=== PATIENT | female | born 1965 | race Caucasian/White ===

== ENCOUNTER 2023-09-10 18:01 | Emergency (ER) | payer OTHER, SELFPAY ==
[2023-09-10 18:04] VITALS: BP 142/74
[2023-09-10 18:15] VITALS: BMI 34.7
--- NOTE | 2023-09-10 18:15 | ED.GENMED ---
History of Present Illness
General
Chief Complaint: Chest Pain
Source: patient
Exam Limitations: none
Time Seen by Provider: 09/10/23 18:03
Travel History
Have you had any contact with someone who has COVID-19?: No
Do you have any symptoms of coronavirus? Fever > 100 degrees, chills, cough, shortness of breath, sore throat, loss of taste or smell, muscle aches, or headache?: No
History of Present Illness
History of Present Illness:
This is a 58 year old female that comes in by ambulance with c/o chest pain. States that she seen by her Import Export Coordinator yesterday and she is scheduled for an ECHO and they did an ECG. Sates that she has been getting reflux and has had this chest
discomfort. States that she was started on Pantoprazole and Isosorbide yesterday. States that she was told to take them on an empty stomach so she took them around 4:30pm State that she was walking her dog when she started with chest pain. States
that this pain comes and goes and is not constant. States that at first it was a cramping pain and it only lasted about 1 min and it went away. States that again it was like a lightening strike pain and it goes away. States that she is SOB. Denies
any fever, chills, abd pain, nausea, vomiting, diarrhea, headache, dizziness, urinary burning.
Past History
Past History
ED Past Medical History: Asthma, Fibromyalgia, Hypercholesterolemia, Hypothyroidism, Psychiatric (Anxiety) and Other (Colitis, 2 abd hernia's)
ED Past Surgical History: (X 2)
Social History
Tobacco: Non-smoker
Alcohol: None
Personal:
Living: with family
Review of Systems
Review of Systems
All Other Systems: ROS reviewed and negative except as documented in HPI and ROS
Constitutional: Reports no symptoms; Denies fever or chills
EENT: Reports no symptoms
Respiratory: Reports trouble breathing; Denies cough
Cardiac: Reports chest pain
ABD/GI: Reports no symptoms; Denies abdominal pain, nausea, vomiting or diarrhea
: Reports no symptoms; Denies dysuria, frequency or urgency
Musculoskeletal: Reports no symptoms
Skin: Reports no symptoms
Neurological: Reports no symptoms; Denies dizzy or headache
Psychiatric: Reports no symptoms
Phy Exam
General Physical Exam
General Presentation: no apparent distress
General age: appears stated age
General Skin: warm and dry
General Habitus: normal
General Mental: alert
General Hydration: appears well hydrated
ENT Exam
ENT Exam: TM's normal, pharynx normal and neck supple
Eye Exam
Eye Exam: EOMI
Cardiovascular Exam
Cardiovascular Exam: regular rate/rhythm, no edema and normal peripheral pulses
Pulmonary Exam
Pulmonary Exam: lungs clear, no respiratory distress, no rales, chest non tender, no crackles, no rhonchi, no wheezing and no cough
Gastrointestinal Exam
Gastrointestinal Exam: normal bowel sounds, non tender, soft, no organomegaly, no pulsatile mass and non distended
Musculoskeletal Exam
Musculoskeletal Exam: full ROM and no edema
Skin Exam
Skin Exam: normal color, warm/dry, no rash and no petechia
Psychiatric Exam
Psychiatric Exam: normal mood/affect
Scores
Heart Score for Chest Pain Patients
STEMI patient?: No
History: Slightly or Non-Suspicious
ECG: Normal
Age: >45 - <65 years
Risk Factors: 1 or 2 Risk Factors
Troponin: </= Normal Limit
Heart Score for Chest Pain Patients: 2
Heart Score Risk: 2.5% MACE over next 6 weeks
Course
Orders/Labs/Results
Orders:
Orders
09/10/23 18:03
Electrocardiogram (*1) Urgent
Reason for Study: Chest Pain
EKG- Treatment ONCE
09/10/23 18:14
CR Chest - 2 Views Urgent
Comment:
Reason For Exam: chest pain
09/10/23 18:25
D-Dimer Urgent
09/10/23 19:01
Complete Blood Count/With Diff Urgent
Comprehensive Metabolic Panel Urgent
Troponin I Urgent
09/10/23 19:39
EKG- Treatment ONCE
09/10/23 22:00
Electrocardiogram (*1) Urgent
Reason for Study: Chest Pain
Other Reason for Exam: Repeat with Troponin
09/10/23 22:09
Troponin I Urgent
Abnormal Lab Results
09/10/23
19:01
RBC 3.92 L 10^6/uL
(4.20-5.40)
Hgb 11.0 L g/dL
(12.0-16.0)
Hct 32.2 L %
(37.0-47.0)
MPV 11.0 H fL
(7.4-10.4)
Glucose 104 H mg/dl
(70-99)
09/10/23 19:01
09/10/23 19:01
H/H slightly low. Glucose nonfasting. D-dimer 0.32, Troponin <0.012
Second Troponin <0.012
Vital Signs
Initial and Last Documented VS:
Initial Vital Signs
Temp Pulse Resp BP Pulse Ox
98.7 F 68 12 142/74 100
09/10/23 18:04 09/10/23 18:04 09/10/23 18:04 09/10/23 18:04 09/10/23 18:04
Last Documented Vital Signs
Temp Pulse Resp BP Pulse Ox
98.7 F 58 16 111/60 94
09/10/23 18:04 09/10/23 22:30 09/10/23 22:30 09/10/23 22:00 02/13/24 22:30
MDM/Problems Addressed
Differential Diagnosis Includes:
Angina, [place],
MDM/Problems Addressed:
This is a 58 year old female that comes in with c/o chest pain and that comes goes. States that she saw her Import Export Coordinator yesterday and she is being set up for a Cardiac cath. States that she gets chest pain that comes and goes.
Will get labs, Chest X-ray.
Back into see patient. Explained that her blood work is normal along with the Chest x-ray. Will get second troponin and if normal patient to follow up with her Import Export Coordinator tomorrow for further evaluation.
Back into see patient. Explained that her second Troponin was normal. Will have patient follow up with her Import Export Coordinator. Return with any concerns.
Repeat ECG; Rate 57, Sinus bradycardia. Normal axis. Normal QRS, negative for ischemia.
Chronic conditions affecting care:
NA
Acute Exacerbation and/or Progression of Chronic Illness:
NA
*Radiology
Radiology exam reviewed: preliminary read by ED provider (Chest- Negative for active disease)
*Pulse Oximetry
Patient hypoxic: no
*EKG
Interpreted by ED Provider?: Yes
Heart Rate: 64
Rate: normal
Rhythm: sinus
[place]: normal axis
Interval: normal interval
QRS Pattern: normal QRS
Ischemia: no ischemia
*Marketing Services Manager Interpretation
Rate: normal
Heart Rate: 60
*Critical Care Note
Total Time (30-74mins, 75-104mins- exclusive of procedures): Not Applicable
ED Attending Note
-
Portions of this chart may have been created with voice recognition software.� Occasional wrong word or��sound alike� substitutions may have occurred due to the inherent limitations of voice recognition software.
Discharge Plan
Departure
Patient Disposition: Home (Routine Discharge)
Date of Disposition: 09/10/23
Time of Disposition: 22:54
Patient with high blood pressure during this ER visit?: No
Condition: Good
Covid-19: Not Applicable
Discharge Problem:
Chest pain
Instructions: Chest Pain NON-DHP Import Export Coordinator Follow Up
Prescriptions:
No Action
benzonatate 100 mg capsule
100 mg PO Q4H PRN (Reason: cough) Qty: 14 0RF
doxycycline monohydrate 100 mg capsule
100 mg PO BID Qty: 20 0RF
Referrals:
Harshad Sosa CRNP [Family Provider] - Follow up in 2-3 days
Activity Restrictions/Additional Instructions:
As discussed, your both Troponin and ECG is normal. Your chest x-ray was normal and your D-dimer was negative. Please call your Import Export Coordinator tomorrow and let them know you were here at the hospital and were told to follow up. They may wish to move
up your Cardiac catheterization. IF YOU HAVE INCREASED OR CHANGING PAIN, OR YOU HAVE ANY OTHER CONCERNS PLEASE RETURN TO THE EMERGENCY ROOM.
Interventions
Interventions:
*Risk Screen - Suicide Last Done: 09/10/23 18:20
*General Assessment Last Done: 09/10/23 18:20
*Neglect/Abuse Screening Last Done: 09/10/23 18:20
ED- Fall Risk Assessment Last Done: 09/10/23 18:20
*ED COVID-19 Vaccine History Last Done: 09/10/23 18:20
ED- Cardiac Assessment Last Done: 09/10/23 18:20
[2023-09-10 18:50] LABS: D-Dimer 0.32 ug/mlFEU (0.00-0.50)
[2023-09-10 19:07] LABS: % Basophils 0.4 % (0-2); % Eosinophils 1.6 % (0-6); % Immature Granulocytes 0.3 % (0-0.5); % Lymphocytes 25.1 % (20.5-51.1); % Monocytes 7.4 % (1.7-9.3); % Neutrophils 65.2 % (42.2-75.2); Absolute Eosinophils 0.1 10^3/uL (0-0.7); Absolute Lymphocytes 1.8 10^3/uL (1.2-3.4); Absolute Monocytes 0.5 10^3/uL (0.1-0.6); Absolute Neutrophils 4.7 10^3/uL (1.4-6.5); Hematocrit 32.2 % (37.0-47.0); Mean Corp Hgb Conc. 34.2 g/dL (33.0-37.0); Mean Corpuscular Hgb 28.1 pg (27.0-31.0); Mean Corpuscular Volume 82.1 fL (81.0-99.0); Nucleated Red Blood Cells % 0 %; Platelet Count 218 10^3/uL (130-400); Red Blood Cell Count 3.92 10^6/uL (4.20-5.40); Red Cell Dist. Width 13.7 % (11.5-14.5); White Blood Cell Count 7.3 10^3/uL (4.8-10.8)
[2023-09-10 19:21] LABS: ALT (SGPT) 22 U/L (0-35); AST (SGOT) 23 U/L (14-36); Albumin 3.9 g/dl (3.5-5.0); Alkaline Phosphatase 81 U/L (38-126); Blood Urea Nitrogen 14 mg/dl (7-17); Calcium 9.3 mg/dl (8.4-10.2); Carbon Dioxide 28 mmol/L (22-30); Chloride 104 mmol/L (98-107); Estimated Creatinine Clearance 115 ml/min; Glucose 104 mg/dl (70-99); Sodium 138 mmol/L (135-145); Total Bilirubin 0.5 mg/dl (0.2-1.3); Total Protein 6.4 g/dl (6.3-8.2); eGFR > 60.00
[2023-09-10 19:31] LABS: Troponin I < 0.012 ng/ml
[2023-09-10 20:16] VITALS: BP 101/51
[2023-09-10 21:00] VITALS: BP 109/63
[2023-09-10 22:00] VITALS: BP 111/60
[2023-09-10 22:37] LABS: Troponin I < 0.012 ng/ml
== END 2023-09-10 23:06 | disposition home or self-care (01) ==
LOC: EMR 18:01
PROVIDERS: Clinical Nurse Specialist Family Health; EMERGENCY PHYSICIAN Student in an Organized Health Care Education/Training Program; FAMILY PHYSICIAN Nurse Practitioner Primary Care
DX: R07.89 Other chest pain (principal)
CPT/HCPCS: 99285; 71046; 80053; 84484; 85025; 85379; 93005

== ENCOUNTER 2024-03-17 13:28 | Emergency (ER) | payer OTHER, SELFPAY ==
[2024-03-17 13:32] VITALS: BP 143/73
[2024-03-17 14:04] LABS: % Basophils 0.4 % (0-2); % Eosinophils 1.6 % (0-6); % Immature Granulocytes 0.3 % (0-0.5); % Lymphocytes 23.4 % (20.5-51.1); % Monocytes 4.7 % (1.7-9.3); % Neutrophils 69.6 % (42.2-75.2); Absolute Eosinophils 0.1 10^3/uL (0-0.7); Absolute Lymphocytes 1.6 10^3/uL (1.2-3.4); Absolute Monocytes 0.3 10^3/uL (0.1-0.6); Absolute Neutrophils 4.7 10^3/uL (1.4-6.5); Hematocrit 37.2 % (37.0-47.0); Hemoglobin 12.4 g/dL (12.0-16.0); Mean Corp Hgb Conc. 33.3 g/dL (33.0-37.0); Mean Corpuscular Hgb 27.7 pg (27.0-31.0); Mean Corpuscular Volume 83.2 fL (81.0-99.0); Mean Platelet Volume 11.1 fL (7.4-10.4); Nucleated Red Blood Cells % 0 %; Platelet Count 238 10^3/uL (130-400); Red Blood Cell Count 4.47 10^6/uL (4.20-5.40); Red Cell Dist. Width 14.4 % (11.5-14.5); White Blood Cell Count 6.8 10^3/uL (4.8-10.8)
[2024-03-17 14:16] LABS: D-Dimer 0.29 ug/mlFEU (0.00-0.50)
[2024-03-17 14:21] LABS: ALT (SGPT) 20 U/L (0-35); AST (SGOT) 25 U/L (14-36); Albumin 4.5 g/dl (3.5-5.0); Alkaline Phosphatase 75 U/L (38-126); Blood Urea Nitrogen 14 mg/dl (7-17); Calcium 9.8 mg/dl (8.4-10.2); Carbon Dioxide 29 mmol/L (22-30); Chloride 102 mmol/L (98-107); Glucose 117 mg/dl (70-99); Potassium 4.3 mmol/L (3.5-5.1); Sodium 138 mmol/L (135-145); Total Bilirubin 0.4 mg/dl (0.2-1.3); eGFR > 60.00
[2024-03-17 14:26] VITALS: BP 128/103
[2024-03-17 14:30] VITALS: BP 128/79; BMI 35.6
[2024-03-17 14:30] LABS: Troponin I < 0.012 ng/ml
--- NOTE | 2024-03-17 14:44 | ED.GENMED ---
History of Present Illness
General
Chief Complaint: Abdominal Pain
Source: patient
Time Seen by Provider: 03/17/24 14:30
History of Present Illness
History of Present Illness:
58-year-old female with past medical history of asthma, hyperlipidemia, cardiomyopathy presenting to the emergency department for evaluation of right lower chest/upper abdomen pain, worse with deep inspiration, some shortness of breath that all
seems to worsen with exertion/hot weather. Patient states that this been ongoing for a couple of weeks, saw her public relations writer yesterday and had blood work done earlier today does not know the results of these labs. Patient also notes that she was
given a prescription for an outpatient ultrasound of her lower extremities but does not have this until next Saturday. Patient does note that she recently had COVID on February 08 but states most of her symptoms have been fully resolved. She denies any
fevers, chills, rigors, current chest pain, palpitations, diaphoresis or any other concerns. Social history noncontributory.
Past History
Past History
ED Past Medical History: Asthma, Fibromyalgia, Hypercholesterolemia, Hypothyroidism, Psychiatric (Anxiety) and Other (Colitis, 2 abd hernia's)
ED Past Surgical History: (X 2)
Social History
Tobacco: Non-smoker
Alcohol: None
Drug: None
Personal:
Living: with family
Review of Systems
Review of Systems
All Other Systems: ROS reviewed and negative except as documented in HPI and ROS
Phy Exam
Physical Exam
Physical Exam:
GENERAL: Alert , in no apparent distress
EYE: conjunctiva clear
NECK: Supple, no significant adenopathy.
ENT: o/p clr, mmm.
CARDIAC: Regular rate and rhythm
LUNGS: Clear breath sounds bilaterally, no acute respiratory distress, no wheezes/rales/rhonchi
ABDOMEN: Soft, non-tender, normoactive bowel sounds, negative klein's sign
NEUROLOGICAL: Alert and oriented
SKIN: Warm and dry, skin intact.
MUSCULOSKELETAL: well perfused.
PSYCH: Normal and appropriate interaction.
Scores
Heart Failure Risk
Heart Failure Risk Score: Not Applicable
Heart Score for Chest Pain Patients
STEMI patient?: Not applicable
Withdrawal Assessment of Alcohol
Withdrawal Assessment Completed?: Not applicable
Course
Orders/Labs/Results
Orders:
Orders
03/17/24 13:38
Electrocardiogram (*1) Urgent
Reason for Study: Abdominal Pain
EKG- Treatment ONCE
03/17/24 13:48
CMP [Comprehensive Metabolic Panel] Urgent
D-Dimer Urgent
03/17/24 13:49
Complete Blood Count/With Diff Urgent
Troponin I Urgent
03/17/24 14:38
CT Chest Pe Study Urgent
Comment:
Reason For Exam: right lower chest pain/ pleurisy
Abnormal Lab Results
03/17/24 03/17/24
13:48 13:49
MPV 11.1 H fL
(7.4-10.4)
Glucose 117 H mg/dl
(70-99)
03/17/24 13:49
03/17/24 13:48
Vital Signs
Initial and Last Documented VS:
Initial Vital Signs
Temp Pulse Resp BP Pulse Ox
99.3 F 72 18 143/73 99
03/17/24 13:32 03/17/24 13:32 03/17/24 13:32 03/17/24 13:32 03/17/24 13:32
Last Documented Vital Signs
Temp Pulse Resp BP Pulse Ox
98.6 F 57 14 137/83 100
03/17/24 14:30 03/17/24 16:20 03/17/24 16:20 03/17/24 16:28 03/17/24 16:20
MDM/Problems Addressed
Differential Diagnosis Includes:
Pleurisy/costochondritis, PE, cholecystitis, shingles, pneumonia
MDM/Problems Addressed:
58-year-old female presenting to the emergency department for evaluation of some right upper abdomen/lower chest wall pain that has been ongoing for few weeks. Symptoms seem to be aggravated with exertion. No angina or anginal equivalent. Patient
does have a history of cardiomyopathy but no significant murmur appreciated on exam. Labs have been initiated in triage and patient has a negative D-dimer. Given the chronicity of symptoms and recent COVID it is still certainly possible patient
may have a slight pneumonia or PE. Will check CTA for further evaluation. Patient otherwise hemodynamically stable in no acute distress.
Chronic conditions affecting care: Cardiomyopathy
*Radiology
Radiology exam reviewed: radiology read reviewed
*Pulse Oximetry
Patient hypoxic: no
*EKG
Interpreted by ED Provider?: Yes
Comparison EKG: no changes
Heart Rate: 63
Rate: normal
Rhythm: sinus
Ischemia: no ischemia
*Quill Cleaner Interpretation
Rate: normal
Rhythm: sinus
*Critical Care Note
Total Time (30-74mins, 75-104mins- exclusive of procedures): Not Applicable
Data Reviewed
Review of Other/Old Records Reveals: Labs and Records
Patient Management
Escalation/DeEscalation of care consider admission/obs:
Patient CT scan without any acute abnormalities. Labs all reassuring. Patient has already arranged follow-up with her primary care as well as pulmonology. Aware of return precautions to the ER but otherwise stable for discharge home.
ED Attending Note
-
Portions of this chart may have been created with voice recognition software.� Occasional wrong word or��sound alike� substitutions may have occurred due to the inherent limitations of voice recognition software.
Discharge Plan
Departure
Patient Disposition: Home (Routine Discharge)
Date of Disposition: 03/17/24
Time of Disposition: 16:29
Patient with high blood pressure during this ER visit?: Yes
Discharge Problem:
Chest pain
Instructions: Chest Pain, Adult ED
Prescriptions:
No Action
benzonatate 100 mg capsule
100 mg PO Q4H PRN (Reason: cough) Qty: 14 0RF
doxycycline monohydrate 100 mg capsule
100 mg PO BID Qty: 20 0RF
Referrals:
Harshad Sosa CRNP [Family Provider] -
Interventions
Interventions:
*Risk Screen - Suicide Last Done: 03/17/24 16:38
*General Assessment Last Done: 03/17/24 13:32
*Neglect/Abuse Screening Last Done: 03/17/24 16:38
ED- Fall Risk Assessment Last Done: 03/17/24 16:38
*ED COVID-19 Vaccine History Last Done: 03/17/24 13:32
*Nursing Disposition Last Done: 03/17/24 16:38
[facility]-Jce[facility]bg[facility] Assessment Last Done: 03/17/24 14:30
Discharge Date and Time
Discharge Date/Time: 03/17/24 16:38
Print Language: SETSWANA
[2024-03-17 15:00] VITALS: BP 128/83
[2024-03-17 16:19] VITALS: BP 137/83
[2024-03-17 16:28] VITALS: BP 137/83
== END 2024-03-17 16:38 | disposition home or self-care (01) ==
LOC: EMR 13:28
PROVIDERS: Emergency Medicine; EMERGENCY PHYSICIAN Student in an Organized Health Care Education/Training Program; FAMILY PHYSICIAN Nurse Practitioner Primary Care
DX: R07.89 Other chest pain (principal); I42.9 Cardiomyopathy, unspecified; E78.00 Pure hypercholesterolemia, unspecified; J45.909 Unspecified asthma, uncomplicated
CPT/HCPCS: 99285; 71275; 80053; 84484; 85025; 85379; 93005; Q9967

== ENCOUNTER → 2024-03-27 14:53 | Outpatient (REF) | payer OTHER, SELFPAY | LOC: RAD 14:53 | PROVIDERS: ATTENDING PHYSICIAN Internal Medicine Critical Care Medicine; FAMILY PHYSICIAN Nurse Practitioner Primary Care | DX: R60.0 Localized edema (principal) | CPT/HCPCS: 93970 ==

== ENCOUNTER 2024-08-18 06:19 | Day surgery (SDC) | payer OTHER, SELFPAY | END 2024-08-18 08:51 | disposition home or self-care (01) | LOC: GI 06:19 | PROVIDERS: ATTENDING PHYSICIAN Surgery | DX: Z12.11 Encounter for screening for malignant neoplasm of colon (principal); K57.30 Diverticulosis of large intestine without perforation or abscess without bleeding; Z86.0101 Personal history of adenomatous and serrated colon polyps; Z80.0 Family history of malignant neoplasm of digestive organs | CPT/HCPCS: G0105 ==

== ENCOUNTER → 2024-11-07 09:12 | Outpatient (REF) | payer OTHER, SELFPAY | LOC: REG 09:12 | PROVIDERS: ATTENDING PHYSICIAN Internal Medicine Cardiovascular Disease; FAMILY PHYSICIAN Nurse Practitioner Primary Care | DX: I37.0 Nonrheumatic pulmonary valve stenosis (principal) | CPT/HCPCS: 93306 ==

== ENCOUNTER → 2024-12-04 09:35 | Outpatient (REF) | payer OTHER, SELFPAY | LOC: RCS 09:35 | PROVIDERS: ATTENDING PHYSICIAN Internal Medicine Cardiovascular Disease; FAMILY PHYSICIAN Nurse Practitioner Primary Care | DX: R06.09 Other forms of dyspnea (principal) | CPT/HCPCS: 93017; 93350 ==